=== PATIENT | female | born 1945 | race Caucasian/White ===

== ENCOUNTER 2024-08-08 16:46 | Outpatient (REF) | payer MEDICARE, SELFPAY ==
--- NOTE | ~2024-08-08 | XR_ITS ---
EXAMINATION: XR CHEST CLINICAL INFORMATION: CHEST CONGESTION COMPARISON: None available. TECHNIQUE: 2 views of the chest were obtained. FINDINGS: Elevated left hemidiaphragm. Pulmonary reticular pattern. No gross consolidation pleural effusion or pneumothorax. Cardiomediastinal silhouette demonstrates a calcified plaque thoracic aorta. Multilevel thoracic and upper lumbar spondylosis. Osteopenia versus osteoporosis. Degenerative changes in the right shoulder. XR/XR chest 2V IMPRESSION: Elevated left hemidiaphragm. Consider paralysis versus paresia, Left phrenic nerve Electronically signed by: Eliu Barlow MD 10/17/2024 09:51 AM EST
== END 2024-08-08 16:47 | disposition home or self-care (01) ==
LOC: HO.XRAY 16:46
PROVIDERS: PCP Internal Medicine; Visit Provider Internal Medicine
DX: J45.909 Unspecified asthma, uncomplicated (principal)
CPT/HCPCS: 71046

== ENCOUNTER → 2024-08-08 17:00 | Outpatient (BNV) | payer MEDICARE, SELFPAY | PROVIDERS: PCP Internal Medicine; Visit Provider Radiology Diagnostic Radiology | DX: R09.89 Other specified symptoms and signs involving the circulatory and respiratory systems (principal); J98.6 Disorders of diaphragm | CPT/HCPCS: 71046 ==

== ENCOUNTER 2024-11-17 12:55 | Outpatient (AMB) | payer MEDICARE, SELFPAY ==
--- NOTE | 2024-11-17 13:02 | MHC.OFFVIS ---
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 She is 79-year-old female was not seen a primary care physician for many decades. Recently was at [facility] with bilateral lower extremity swelling was prescribed hydrochlorothiazide. She was since then stopped hydrochlorothiazide. She is not on any significant other medications except for Benadryl which she takes as a p.r.n. basis. She says she has no active symptoms. Denies any exertional chest pain or shortness of breath. When she had leg edema she did not have any heart failure symptoms of orthopnea, PND. She says she has been pretty much healthy although she does not get out much because of social issues. She does not drive a car right now and has difficulty transporting herself. Does not go grocery shopping. She was referred here because of possible aortic stenosis. She has had no echocardiogram to her knowledge. She says she has a murmur for some time although she can not further elucidate on it. [facility] Family History Other No known health problems Social History Alcohol intake: current Alcohol intake frequency: holidays/special occasions only Patient Tobacco Use Status: Never used Tobacco Review of Systems Const Denies chills, Denies fatigue, Denies fever(s), Denies weight gain and Denies weight loss Eyes Denies loss of vision ENT Denies dizziness Card Denies chest pain, Denies leg edema, Denies lightheadedness, Denies palpitations, Denies dyspnea on exertion, Denies orthopnea and Denies other Resp Denies cough, Denies dyspnea on exertion and Denies wheezing GI Denies hematochezia and Denies change in stool character Denies urinary frequency and Denies dysuria Musc Denies abnormal gait, Denies muscle weakness, Denies numbness, Denies radiating pain into limb and Denies tingling Skin/Breast Denies nail changes and Denies rash Neuro Denies Abnormal speech present, Denies abnormal gait, Denies dizziness, Denies loss of vision, Denies memory loss, Denies numbness and Denies tingling Psych Denies depression and Denies memory loss Endo Denies fatigue and Denies palpitations Tristan/Lymph Denies easy bruising Aller/Immun Denies wheezing Physical Exam Vital Signs: Last Vital Signs Pulse 94 11/17/24 13:05 BP 130/62 11/17/24 13:05 BMI result Body Mass Index 26.3 Const General: cooperative, comfortable, no acute distress, alert and awake Nutritional Appearance: average body habitus Orientation/consciousness: patient oriented x3 Limitations: no limitations HEENT Head: Yes normocephalic and Yes atraumatic Neck Neck: Yes trachea midline, Yes supple and Yes no JVD Resp Effort & Inspection: normal respiratory effort Auscultation: clear to auscultation bilaterally Cardio Jugular venous distension: no JVD Palpation: normal PMI Rate: regular rate Rhythm: regular rhythm Heart sounds: S1 normal heart sound present, S2 normal heart sound present, no click, no gallops and Murmur heart sound present systolic early, mid, decrescendo and crescendo Bruits: no carotid bruits GI Auscultation: normal bowel sounds Skin General skin exam: no rashes or lesions noted Neuro General: patient oriented x3 and no focal motor deficits Speech: No Abnormal speech present Extrem General: Yes no clubbing, cyanosis or edema Psych Appearance: grossly normal Assessment & Plan Assessment & Plan (1) Aortic stenosis: Code(s): I35.0 - Nonrheumatic aortic (valve) stenosis Category: Medical Plan: Aortic stenosis which clinically appears to be mild at most moderate. She will require an echocardiogram to further assess for LV systolic function as well as severity of aortic stenosis. Recommend low-dose aspirin therapy to her. She says she was start that. She was difficulty in pursuing testing in [place], will give her outpatient referral for echocardiogram to done at [facility] facility close to her. Further treatment based on the findings. Advised to monitor blood pressure at home. Blood pressure is borderline at this point time. Advised lipid panel fasting in near future. Target goal LDL less than 100 mg/dL. Will follow up in the clinic in 1 year, sooner p.r.n.. Orders: Orders CA echo transthoracic complete 11/17/24 I35.0 - Nonrheumatic aortic (valve) stenosis Coding Level of Care Code New Pt Level 4 (28099) Complex EM visit Add On G2211 Diagnoses Aortic stenosis I35.0
[2024-11-17 13:05] VITALS: BP 130/62; PULSE 94; BMI 26.3
--- OUTSIDE RECORDS SUMMARY | 2024-11-17 13:56 | XMS_ITS | Patient Health Record ---
Author Organization [facility] Address [address] [place] [address] Care Team Providers Care Insurance Producer Name Role Phone Susan Neves Unavailable [phone] Allergies Allergen (clinical drug ingredient) Drug/Non Drug Allergy documented on EMR Reaction Allergy Type Onset Date Status Shrimp Flavor Unknown Drug Allergy Act cesar aspirin Aspirin Unknown Drug Allergy Active erythromycin Erythromycin Unknown Drug Allergy A ctive Penicillin Unknown Drug Allergy Active Reason For Referral No Information Medications Medication SIG (Take, Route, Fr equency, Duration) Notes Start Date End Date Status LamISIL 250mg 1 tablet orally Once daily for 30 days Active Ciclopirox 0.77 % 1 application Drag Out Worker ally Twice a day for 365 days Active Allergy Active Lamisil 250mg 1 tablet orally Once daily for 30 days Active hydroCHLOROthiazide Active Social History Tobacco Use: Social History Observation Description Date Details (start date - stop date) Never Smoker NA - NA Tobacco Use/Smoking Question Answer Notes Are you a: nonsmoker Additional Findings: Tobacco Non-User Current no n-smoker Alcohol Screen Question Answer Notes Did you have a drink containing alcohol in the p ast year? Yes Points 0 Interpretation Negative Tobacco use other than smoking: Question Answer Notes Are you an other tobacco user? No Vital Signs Height 5 ft 5 in in 07/11/2024 Encounters Encounter Location Date Provider Diagnosis [address] [address] 07/11/2024 Susan Neves Fungal infection of nail B35.1 ; Pain in right toe(s) M79.674 and Pain in left toe(s) M79.675 [facility] [address] [place] [address] 06/17/2024 Susan Neves [facility] [address] [place] [address] 09/28/2024 Susan Neves Assessments Encounter Date Diagnosis (ICD Code) Assessment Notes Treatment Notes Treatment Clinical Notes Section Notes 07/11/2024 Pain in right toe(s) (ICD-10 - M79.674) 07/11/2024 Fungal infection of nail (ICD-10 - B35.1) 07/11/2024 Pain in left toe(s) (ICD-10 - M79.675) Plan Of Treatment Pending Test Test Name Order Date *Liver Function Test (LFT) 07/11/2024 Insurance Providers Payer Name Payer Address Payer Phone Subscriber Number Group Number Insured Name Patient Relationship to Insured Coverage Start Date Coverage End Date Medicare National [employer] [address] [place] [address] [id number] Catalina Helms Self - patient is the insured AARP Secondary to Medicare [address] [place] [address] [id number] Nasir Helms Spouse - patient is the spouse of the insured Medical (General) History Medical History History ICD Code asthma Cancer covid-19 Melanoma Psoriasis/eczema Reflux ( GERD) sinusitis thyroid Measles Mumps Chicken pox Surgical History Surgery Date(Month/Year) thyroid removal
--- OUTSIDE RECORDS SUMMARY | 2024-11-17 13:56 | XMS_ITS ---
Author Organization [facility] Address [address] [place] [address] Care Team Providers Care Director Workers Compensation Name Role Phone Susan Neves Unavailable [phone] REASON FOR VISIT CX 09/29/24 Encounters Encounter Location Date Provider Diagnosis [address] [address] 09/28/2024 Susan Neves Plan Of Treatment No Information Progress Notes * Catalina MUKHERJEE MDOB: (79 yo F)Acc No.[id number]:09/28/2024 Patient:?Catalina MUKHERJEE :1945???Age:79 Y???Sex:Female Address:[address] [place] [address] * true * Date:? Generated for Julian vargas/Fabrice/eTransmitting on:?11/17/2024 01:55 PM EST
--- OUTSIDE RECORDS SUMMARY | 2024-11-17 13:56 | XMS_ITS ---
Author Organization [facility], Address [address] [place] [address] Care Team Providers Care Golf Club Manager Name Role Phone Aster Boudreaux Unavailable [phone] ALLERGIES, ADVERSE REACTIONS, ALERTS Substance Code Code System Type Reaction Severity Status Start Date End Date Augmentin 096289 RxNorm Drug allergy () 1 Ativan 20240524 RxNorm Drug allergy () 0 Penicillins Unknown Drug allergy () 1 Penicillins RxNorm Drug allergy () 0 amoxicillin 723 RxNorm Drug allergy () 1 Patient reports she is aller gic to other antibiotics but is unable to tell us which ones RxNorm Drug allergy Hives (980410050) 0 MEDICATIONS Medication Code Code System Start Date Stop Date Route Dosage Directions Fill Instructions Zyrtec RxNorm 04/23/2022 PROBLEMS Problem Name Code Code System Start Date End Date Stat us Allergic rhinitis 52751802 [facility] 04/23/2022 Ac tive Asthma 560482100 [facility] 04/23/2022 Active COVID-19, Contact with and (suspected) exposure to 275287956 [facility] 04/23/2022 Reso lved Heart failure, unspecified 29165890 [facility] 06/16/2024 Active ENCOUNTERS Encounter Diagnosis Code Code System Date Stat us Heart failure, unspecified 06784096 [facility] 06/16/2024 Active IMMUNIZATIONS * None VITAL SIGNS Code Code System Vitals Name Date Value and Un its 8462-4 [facility] Blood Pressure-Diastolic 06/16/2024 106 mmHg 8480-6 [facility] Blood Pressure-Systolic 06/16/2024 1 62 mmHg 8867-4 [facility] Heart Rate 06/16/2024 102 /min 9279-1 [facility] Respiratory Rate 06/16/2024 16 /min 8310-5 [facility] Body Temperature 06/16/2024 98.9 F 55404-0 [facility] Oxygen Saturation 06/16/2024 91 % SOCIAL HISTORY * None PROCEDURES * None MEDICAL EQUIPMENT * Patient has no history of implantable devices ASSESSMENT Assessment You must go directly to the emergency department for further care TREATMENT PLAN No Treatment Plan Items Lab Tests None GOALS * None HEALTH CONCERNS * No Health Concerns FUNCTIONAL AND COGNITIVE STATUS * None CONSULTATION NOTES * Michelle Okeefe - 06/16/2024 ED [facility]Ref[facility]: [facility] [address] [place] [address]D: F: Schedule: CompletedNotes:* Comments: 79-year-old female presenting with significant hypertension, tachycardia, hypoxia with peripheral edema concerning for CHF. Has a right upper sternal border systolic murmur. Patient declines EMS transfer, will be taken by daughter via car. Mode of transport is Privately Owned VehicleStability Status is stableOrdered 06/16/2024 05:58 PM by Seda Santana edited 06/22/2024 10:45 AM by Michelle Okeefe MA HARGE SUMMARY NOTES * None HISTORY AND PHYSICAL NOTES * Reason for visit - Illness IMAGING NOTES * None LABORATORY REPORT NARRATIVE NOTES * None PATHOLOGY REPORT NARRATIVE NOTES * None PROGRESS NOTES * None
--- OUTSIDE RECORDS SUMMARY | 2024-11-17 13:56 | XMS_ITS ---
Author Organization [facility] Address [address] [place] [address] Care Team Providers Care Confectionery Laboratory Manager Name Role Phone Edinson Susan Unavailable [phone] Allergies Allergen (clinical drug ingredient) Drug/Non Drug Allergy documented on EMR Reaction Allergy Type Onset Date Status Shrimp Flavor Unknown Drug Allergy Act cesar aspirin Aspirin Unknown Drug Allergy Active erythromycin Erythromycin Unknown Drug Allergy A ctive Penicillin Unknown Drug Allergy Active REASON FOR VISIT Fungal Nails Medications Medication SIG (Take, Route, Fr equency, Duration) Notes Start Date End Date Status hydroCHLOROthiazide Active Allergy Active Ciclopirox 0.77 % 1 application Trencher Driver ally Twice a day for 365 days Active Lamisil 250mg 1 tablet orally Once daily for 30 days Active Social History Tobacco Use: Social History [...] 07/11/2024 Encounters Encounter [facility] Date [facility] [address] [facility]/11/[facility] Susan Neves Fungal infection of nail B35.1 ; Pain in right toe(s) M79.674 and Pain in left toe(s) M79.675 Assessments Encounter Date Diagnosis (ICD Code) Assessment Notes Treatment Notes Treatment Clinical Notes Section Notes 07/11/2024 Fungal infection of nail (ICD-10 - B35.1) 07/11/2024 Pain in right toe(s) (ICD-10 - M79.674) 07/11/2024 Pain in left toe(s) (ICD-10 - M79.675) Plan Of Treatment Medication Medication Name Sig Start Date Stop Date Notes Ciclopirox 0.77 % 1 application Trencher Driver ally Twice a day for 365 days Lamisil 250mg 1 tablet orally Once daily for 30 days Pending Test Test Name Order Date *Liver Function Test (LFT) 07/11/2024 Next Appt Details Follow Up: 2-3 Months, Maria Ro n: Progress Notes * Ameena HELMShleen MDOB: (79 yo F)Acc No.[id number]:07/11/2024 Progress Notes Patient:?Catalina Helms Provider:?Susan Neves DPM :1945???Age:79 Y???Sex:Female D ate:07/11/2024 Address:[address] [place], [place] [id number] Subjective: * Chief Complaints: * ???Fungal Nails * HPI: ???Painful Nails:?Nature:?aching, tender, discolored, thick.?Course:?worse.?Aggravated by:?shoegear causing difficulty standing/walking.? * ROS:?General/Constitutional:?Nausea?denies.?Vomiting?denies.?Hunger Thirst?denies.?Loss appetite?denies.?Chills?denies.?Fatigue?denies.?Fever?denies.?Night Sweats?denies.?Unexplained weight loss?denies.?Unexplained weight gain?denies.?HEENTM:?Dentures?denies.?Dizziness?denies.?Glasses/contacts?denies.?Retinopathy?de nies.?Blurred/double vision?denies.?TMJ?denies.?Discharge/drainage?denies.?Implants?denies.?Sore throat?denies.?Dental implants?denies.?Hard of hearing ?denies.?Difficulty chewing/swallowing/speaking?denies.?Nose bleeds?denies.?Sore mouth?denies.?Respiratory:?On Oxygen?denies.?Pneumonia/pleurisy?denies.?Bronchitis?denies.?Emphysema?denies.?C oughing?denies.?Cough blood?denies.?Shortness of breath?admits.?Wheezing?admits.?Cardiovascular:?Pacemaker?denies.?MVP?denies.?WPW?denies.?CHF?denies.?Heart attack?denies.?Septal defect?denies.?Rapid beat?denies.?Chest pain ?denies.?Atrial Fib.?denies.?Murmur/Palpitations?denies.?Gastrointestinal:?Hemorrhoids?denies.?Stomach/Abdominal pain?denies.?Dark blood stool?denies.?Irritable bowel ?denies.?Constipation?denies.?Diarrhea?denies.?Hematology:?Swelling?denies.?Clots?denies.?Varicose Veins?denies.?Bruising?denies.?Bleeding problem?denies.?Genitourinary:?Blood urine?denies.?Frequent/Painfu/urination/bladder control?denies.?Kidney stones?denies.?Infection (UTI)?denies.?Nephropathy?denies.?sex trans dis (STD)?denies.?Prostate?denies.?Musculoskeletal:?Hammertoes?denies.?Bunions?denies.?Back Pain?denies.?Muscle Cramps/ Resting?denies.?Muscle cramps / walking?denies.?Generalized aches and pains?denies.?Weakness?denies.?Integ.:?Chang?denies.?Scars?denies.?Corns/calluses?denies.?Ingrown nails?denies.?Painful nails?denies.?Open Sores?denies.?Rashes?denies.?Neurologic:?Difficulty sleeping?denies.?Brain disorder?denies.?Numbness?denies.?Balance trouble?denies.?Confusion?denies.?Fainting/blackouts?denies.?Tingling?denies.?Tr emors?denies.? * Medical History:? * Surgical History:?thyroid re moval * Hospitalization/Major Diagno stic Procedure:?No Hospitalization History. * Family History:?Mother: dece ased, diagnosed with Family history of arthritis.?Father: , diagnosed with Family history of arthritis.? * Social History:?Tobacco Use:?Tobacco Use/Smoking?Are you a:?nonsmoker ?Additional Findings: Tobacco Non-User?Current non-smoker ?Tobacco use other than smoking?Are you an other tobacco user??No ???Drugs/Alcohol:?Drugs?Have you used drugs other than those for medical reasons in the past 12 months??Yes ?Alcohol Screen?Did you have a drink containing alcohol in the past year??Yes ?Points?0 ?Interpretation?Negative ???Miscellaneous:?Caffeine: yes. ?Children: yes, 2. ?Marital status: . 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 * Medications:?TakinghydroCHLO ROthiazide Allergy Medication List reviewed and reconciled with the patientTaking hydroCHLOROthiazide Taking Allergy Medication List reviewed and reconciled with the patient * Allergies:?PenicillinErythro mycinAspirinShrimp Flavoryes[Allergies Verified] Objective: * Vitals:?Ht: 5 ft 5 in, Shoe size: 6-6.5, Ht-cm: 165.1 cm. * Examination: ???General Examination: ?GENERAL APPEARANCE:?Reveals a pleasant, alert, well-nourished, well- developed, well hydrated individual, who demonstrates proper attention to hygiene/body habitus, and is in no acute distress, Pt serves as own?historian for office visit today.?ORIENTED:?person, place, and time.?Neurological: ?SENSORY:?Neurological exam reveals intact sensorium, pain sensation normal, vibration sensation intact, pinprick sensation is normal in the lower extremities, Pt denies, anesthesia, burning, paresthesia, tingling, B/L.?DEEP TENDON REFLEXES:?Achilles, 2/4, B/L.?Vascular: ?DP PULSES:?3/4, B/L.?PT PULSES:?3/4, B/L.?CAPILLARY FILL TIME:?immediate, all digits, B/L.?SKIN TEMPERTURE GRADIENT OF THE LOWER EXTERMITIES:?warm to cool, proximal to distal, B/L.?HAIR GROWTH/TEXTURE/ELASTICITY/TURGOR:?normal, B/L.?PIGMENTATION:?normal, B/L.?EDEMA:?absent, B/L.?Dermatologic: ?SKIN FINDINGS:?Skin exam reveals normal texture, elasticity, and turgor. There are no masses. The interspaces are clear.?Orthopedic: ?MUSCLE STRENGTH:?5/5 all groups in a symmetrical fashion , B/L.?Nails: ?NAILS are:?Elongated, overgrown, dystrophic, lytic, greater than 3mm thick, discolored and friable with crumbly malodorous subungual debris, with pain on palpation , 1-5 B/L.? Assessment: * Assessment: 1.?Pain in right toe(s) - M7 9.674?2.?Fungal infection of nail - B35.1?3.?Pain in left toe(s) - M79.675? Plan: * Treatment: * Procedure Codes:? * Preventive Medicine:? ??Counseling:?Discussion:?-02: Office or other outpatient visit for the evaluation and management of a new patient, which required a medically appropriate history and/or examination and STRAIGHTFORWARD level of MEDICAL DECISION MAKING, 1 SELF-LIMITED OR MINOR PROBLEM, MINIMAL- NO AMOUNT/COMPLEXITY OF DATA TO BE REVIEWED/ANALYZED, AND MINIMAL RISK OF COMPLICATION/MORBIDITY. The visit on the day of the encounter encompassed interpreting the data and educating the patient as to the nature of their condition, treatment options available according to their individual PMH, meds, allergies, and overall health/living conditions, as well as any potential risks or complications that may occur from a failure to adhere to, and participate in, the recommended course of therapy. The discussion included a complete verbal, and/or written explanation of the examination results, any x-rays taken, the proposed diagnosis, and outline of the treatment plan. A schedule for future care needs was also explained. The patient verbalized an understanding of the instructions at this time and agreed to be an active participant in their treatment. If the patient should think of any questions or concerns after the visit, I have encouraged the patient to call the office.?Fungal Nail Counseling:?The patient was counseled on the diagnosis, potential etiologies (including, but not limited to, environmental factors, genetic, immune deficiency), and the multiple treatment options for Onychomycosis. We discussed the risks and benefits of each option from performing no treatment, to ultraviolet light shoe treatment, to laser nail treatment, to applying topical antifungals, to taking oral antifungal medication, to surgical removal of the involved nail(s) with or without performing a matricectomy, or any combination thereof. We discussed the advantages and disadvantages of each of possible treatment and importance for adherence to all the recommended therapies for optimum success. This includes the necessity for weekly emery board self nail home debridements, and control the nail and skin environment as much as possible by only using a fresh, dry pair of shoes/socks each day, as well as keeping the skin as dry as possible through the use of sprays/powders if necessary. The patient was instructed to discard the emery board after use to prevent reinfection of the involved nail(s). We discussed the mycological and visual clinical effectiveness of topical vs oral antifungal treatments as well as each ones potential side effects and/or any patient- specific medication interactions. We discussed the reasons behind the important requirement of regular liver function testing with oral antifungal therapy for safety. Patient questions regarding use, dosage, successful outcomes, blood tests, and possible pharmaceutical interactions were reviewed and the patient verbalized that all answers were clearly understood, Nail debridement performed extensively to reduce/remove overall nail length, girth, thickness, subungual debris, and necrotic tissue, by manual and electrical means through the use of a nail nipper and/or dremel, to more viable healthy nail plate or bed tissue. Silver nitrate used for any petechial bleeding as necessary.? * Follow Up:?2-3 Months * Images: * Sign off status: Completed true * Provider:?Susan Neves DPM Date:? Generated for Julian vargas/Fabrice/eTransmitting on:?11/17/2024 01:55 PM EST History and Physical Notes * HPI (History of Present Illness) Category Sub-Category Detail Notes Category Not es Painful Nails Aggravated by: shoegear causing difficulty standing/walking Course: worse Nature: aching, tender, disc olored, thick Examination Category Sub-Category Detail Notes Category Not es Neurological SENSORY: Neurological exa m reveals intact sensorium, pain sensation normal, vibration sensation intact, pinprick sensation is normal in the lower extremities, Pt denies, anesthesia, burning, paresthesia, tingling, B/L DEEP TENDON REFLEXES: Achilles, 2/4, B/L Dermatologic SKIN FINDINGS: Skin exam reveal s normal texture, elasticity, and turgor. There are no masses. The interspaces are clear Orthopedic MUSCLE STRENGTH: 5/5 all groups in a symm etrical fashion , B/L General Examination GENERAL APPEARANCE: Reveals a pleasant, alert, well- nourished, well-developed, well hydrated individual, who demonstrates proper attention to hygiene/body habitus, and is in no acute distress, Pt serves as own historian for office visit today ORIENTED: person, place, and t jeremy Vascular DP PULSES (B): 3/4, B/L PT PULSES (B): 3/4, B/L CAPILLARY FILL TIME: immediate, all digi ts, B/L TEMPERTURE GRADIENT (C): warm to cool, p roximal to distal, B/L TROPHIC CONDITION-TEXTURE/ELASTICITY/TURGOR/HAIR GROWTH (B): normal, B/L EDEMA (C): absent, B/L PIGMENTATION: normal, B/L Nails NAILS are: Elongated, overg rown, dystrophic, lytic, greater than 3mm thick, discolored and friable with crumbly malodorous subungual debris, with pain on palpation , 1-5 B/L
== END 2024-11-17 13:28 | disposition home or self-care (01) ==
LOC: HO.HCS 12:55
PROVIDERS: PCP Internal Medicine; Visit Provider Internal Medicine Cardiovascular Disease
DX: I35.0 Nonrheumatic aortic (valve) stenosis (principal)
CPT/HCPCS: 99204; G2211

== ENCOUNTER → 2024-11-17 12:55 | Outpatient (BNVA) | payer MEDICARE, SELFPAY | PROVIDERS: PCP Internal Medicine; Visit Provider Internal Medicine Cardiovascular Disease | DX: I35.0 Nonrheumatic aortic (valve) stenosis (principal) | CPT/HCPCS: 99202 ==